=== PATIENT | male | born 1970 | race Caucasian/White ===

== ENCOUNTER 2024-05-14 12:50 | Emergency (ER) | payer BC, SELFPAY ==
--- NOTE | ~2024-05-14 | CT_ITS ---
EXAMINATION: CT brain wo con DATE: 05/14/2024 13:38 INDICATION: Head injury. TECHNIQUE: Computed tomography (CT) of the head was performed without intravenous contrast. The mA wa s adjusted according to patient size. Iterative reconstruction technique was employed. The dose-lengt h product was 681.00 mGy-cm. COMPARISON: None FINDINGS: There is no intracranial hemorrhage, acute infarction, or abnormal intracranial mass lesion . There are scattered areas of nonspecific increased T2-weighted signal intensity in the cerebral whi te matter. The ventricles are normal in size. There is a blowout fracture of medial wall of left orb it. There is mucosal thickening in the paranasal sinuses. There are changes of left mastoidectomy wit h complete opacification of the mastoid air cells. IMPRESSION: 1. . Mild nonspecific cerebral white matter disease, which likely represents chronic small vessel isc hemic disease. 2. Age-indeterminate blowout fracture of medial wall of left orbit. Reviewed, dictated and finalized at location A. IMPRESSION: 1. . Mild nonspecific cerebral white matter disease, which likely represents ch ronic small vessel ischemic disease. 2. Age-indeterminate blowout fracture of medial wall of left orbit.
--- NOTE | ~2024-05-14 | CT_ITS ---
EXAMINATION: CT cervical spine wo con DATE: 05/14/2024 13:38 INDICATION: Neck injury. TECHNIQUE: Computed tomography (CT) of the cervical spine was performed without intravenous contrast. Automated exposure control and iterative reconstruction technique were employed. The dose-length pro duct was 545.03 mGy-cm. COMPARISON: None FINDINGS: There is 8 degrees levocurvature of cervical spine. Vertebral body heights are normal. Ther e is mildly decreased disc height at C5-C6, C6-C7, and C7-T1. The following disc levels are specifica lly discussed: C2-C3: There is mild left uncovertebral joint osteoarthritis. There is no facet joint osteoarthritis. There is no neural foraminal stenosis. There is no central canal stenosis. C3-C4: There is mild bilateral uncovertebral joint osteoarthritis. There is no facet joint osteoarthr itis. There is mild bilateral neural foraminal stenosis. There is no central canal stenosis. C4-C5: There is mild bilateral uncovertebral joint osteoarthritis. There is mild right facet joint os teoarthritis. There is no neural foraminal stenosis. There is mild central canal stenosis. C5-C6: There is severe right and moderate left uncovertebral joint osteoarthritis. There is mild bila teral facet joint osteoarthritis. There is mild bilateral neural foraminal stenosis. There is mild ce ntral canal stenosis. C6-C7: There is moderate right and mild left uncovertebral joint osteoarthritis. There is mild bilate ral facet joint osteoarthritis. There is mild bilateral neural foraminal stenosis. There is mild cent ral canal stenosis. C7-T1: There is no uncovertebral joint osteoarthritis. There is severe bilateral facet joint osteoart hritis. There is mild bilateral neural foraminal stenosis. There is no central canal stenosis. IMPRESSION: 1. No fracture. 2. Mild cervical spondylosis. Reviewed, dictated and finalized at location A.
[2024-05-14 13:00] VITALS: BP 131/96; PULSE 99; RESP 20; TEMP 36.5; O2SAT 99
--- NOTE | 2024-05-14 14:28 | ED_ITS ---
HPI - General Adult General Chief complaint: Wound/Laceration <Alexys Escobar MD - Last Filed: 05/14/24 19:13> Stated complaint: Fall, Eye Laceration <Alexys Escobar MD - Last Filed: 05/14/24 19:13> Time Seen by Provider: 05/14/24 13:13 <Alexys Escobar MD - Last Filed: 05/14/24 19:13> History of Present Illness HPI narrative: 53-year-old male presenting to the emergency department for evaluation for a left sided facial laceration. Patient reports he was walking last night on a gravel driveway and dress shoes fell forward and landed on his arms but did strike his face on the driveway resulting in a laceration. Patient does not suspect he had any loss of consciousness. <Alexys Escobar MD - Last Filed: 05/14/24 19:13> Related Data Allergies/adverse reactions: Allergies Allergy/AdvReac Type Severity Reaction Status Date / Time No Known Allergies Allergy Verified 05/14/24 14:31 <Alexys Escobar MD - Last Filed: 05/14/24 19:13> Review of Systems Review of Systems: All systems reviewed & are unremarkable except as noted in HPI and below <Alexys Escobar MD - Last Filed: 05/14/24 19:13> Exam Narrative: APPEARANCE: Well appearing, no pain, no distress, well-nourished. HEAD: normocephalic, laceration of left upper eyelid EYES: PERRLA/EOMI, conjunctivae clear. NOSE: Normal no drainage EARS:TMS clear with good light reflex. THROAT: Pharynx clear, no exudate. NECK: Supple. No adenopathy, no masses. RESPIRATORY: Airway patent, respirations nonlabored. Clear to auscultation bilaterally, no rales, rhonchi, wheezing. CARDIOVASCULAR: Regular rate and rhythm without murmurs rubs or gallops. ABDOMINAL: Soft, nontender, nondistended, normal bowel sounds MUSCULOSKELETAL: Moves all extremities. Strength/ROM intact, No edema, No calf tenderness. NEURO: Alert. Cranial nerves II through XII intact. Grossly intact SKIN: Warm, dry. Normal Color <Alexys Escobar MD - Last Filed: 05/14/24 19:13> Course Course Emergency Course: Laceration was repaired as described, patient was started on antibiotics and discharged home <Alexys Escobar MD - Last Filed: 05/14/24 19:13> Vital Signs Vital signs: Vital Signs Temperature 97.7 F 05/14/24 13:00 Pulse Rate 99 05/14/24 13:00 Respiratory Rate 20 05/14/24 13:00 Blood Pressure 131/96 H 05/14/24 13:00 Pulse Oximetry 99 05/14/24 13:00 Oxygen Delivery Room Air 05/14/24 13:00 Temperature 97.7 F 05/14/24 13:00 Pulse Rate 85 05/14/24 15:50 Respiratory Rate 16 05/14/24 15:50 Blood Pressure 130/95 H 05/14/24 15:50 Pulse Oximetry 100 05/14/24 15:50 Oxygen Delivery Room Air 05/14/24 13:00 <Alexys Escobar MD - Last Filed: 05/14/24 19:13> Vital Signs Temperature 97.7 F 05/14/24 13:00 Pulse Rate 99 05/14/24 13:00 Respiratory Rate 20 05/14/24 13:00 Blood Pressure 131/96 H 05/14/24 13:00 Pulse Oximetry 99 05/14/24 13:00 Oxygen Delivery Room Air 05/14/24 13:00 Temperature 97.7 F 05/14/24 13:00 Pulse Rate 85 05/14/24 15:50 Respiratory Rate 16 05/14/24 15:50 Blood Pressure 130/95 H 05/14/24 15:50 Pulse Oximetry 100 05/14/24 15:50 Oxygen Delivery Room Air 05/14/24 13:00 <Jeri Baird PA-C - Last Filed: 05/14/24 18:36> Procedures Laceration Laceration 1: Date: 05/14/24 <Jeri Baird PA-C - Last Filed: 05/14/24 18:36> Time: 15:00 <Jeri Baird PA-C - Last Filed: 05/14/24 18:36> Site: face <SOUTH Henriquez Last Filed: 05/14/24 18:36> Side (If applicable): left (eyebrow/upper eyelid) <SOUTH Henriquez Last Filed: 05/14/24 18:36> Size (cm): 3 <SOUTH Henriquez Last Filed: 05/14/24 18:36> Description: linear (curvilinear) <SOUTH Henriquez Last Filed: 05/14/24 18:36> Depth: simple, single layer <SOUTH Henriquez Last Filed: 07/26 18:36> Local Anesthetic: lidocaine 1% <SOUTH Henriquez Last Filed: 05/14/24 18:36> Amount of anesthesia used (mL): 5 <SOUTH Henriquez Last Filed: 05/14/24 18:36> Pre-repair: wound explored, irrigated and irrigated extensively <SOUTH Henriquez Last Filed: 05/14/24 18:36> ====== Skin Level ======: Skin layer closed with: prolene <SOUTH Henriquez Last Filed: 05/14/24 18:36> Size (cm): 6-0 <SOUTH Henriquez Last Filed: 05/14/24 18:36> Number of sutures: 10 <SOUTH Henriquez Last Filed: 05/14/24 18:36> Technique: simple, interrupted <SOUTH Henriquez Last Filed: 05/14/24 18:36> ====== Subcutaneous Layer ======: ====== Muscle Layer ======: ====== Tendon Layer ======: Medical Decision Making MDM Narrative Medical decision making narrative: 53-year-old male presents emergency department for evaluation for a left- sided facial laceration. Patient's CT cervical spine CT brain were negative for acute fracture dislocation. Patient's laceration was repaired as described in the procedure note. Patient was started on antibiotics and patient's tetanus was updated. All questions concerns were addressed. <Alexys Escobar MD - Last Filed: 05/14/24 19:13> Differential Diagnosis Differential Diagnosis: Facial fracture, skull fracture, hematoma, some arachnoid fracture, laceration <Alexys Escobar MD - Last Filed: 05/14/24 19:13> Vital Signs Vital Signs: Vital Signs Temperature 97.7 F 05/14/24 13:00 Pulse Rate 99 05/14/24 13:00 Respiratory Rate 20 05/14/24 13:00 Blood Pressure 131/96 H 05/14/24 13:00 Pulse Oximetry 99 05/14/24 13:00 Oxygen Delivery Room Air 05/14/24 13:00 Temperature 97.7 F 05/14/24 13:00 Pulse Rate 85 05/14/24 15:50 Respiratory Rate 16 05/14/24 15:50 Blood Pressure 130/95 H 05/14/24 15:50 Pulse Oximetry 100 05/14/24 15:50 Oxygen Delivery Room Air 05/14/24 13:00 <Alexys Escobar MD - Last Filed: 05/14/24 19:13> Vital Signs Temperature 97.7 F 05/14/24 13:00 Pulse Rate 99 05/14/24 13:00 Respiratory Rate 20 05/14/24 13:00 Blood Pressure 131/96 H 05/14/24 13:00 Pulse Oximetry 99 05/14/24 13:00 Oxygen Delivery Room Air 05/14/24 13:00 Temperature 97.7 F 05/14/24 13:00 Pulse Rate 85 05/14/24 15:50 Respiratory Rate 16 05/14/24 15:50 Blood Pressure 130/95 H 05/14/24 15:50 Pulse Oximetry 100 05/14/24 15:50 Oxygen Delivery Room Air 05/14/24 13:00 <Jeri Baird PA-C - Last Filed: 05/14/24 18:36> Imaging Data Radiologist's impression: Impressions Head CT 05/14/24 13:39 IMPRESSION: 1. . Mild nonspecific cerebral white matter disease, which likely represents chronic small vessel ischemic disease. 2. Age-indeterminate blowout fracture of medial wall of left orbit. Cervical Spine CT 05/14/24 13:44 IMPRESSION: 1. No fracture. 2. Mild cervical spondylosis. <Alexys Escobar MD - Last Filed: 05/14/24 19:13> Discharge Plan Discharge Clinical Impression: Laceration, Head injury <Alexys Escobar MD - Last Filed: 05/14/24 19:13> Patient Disposition: Home, Self-Care <Alexys Escobar MD - Last Filed: 05/14/24 19:13> Condition: Stable <Alexys Escobar MD - Last Filed: 05/14/24 19:13> Instructions: Antibiotic Form, Care For Your Stitches (ED), Laceration (ED) <Alexys Escobar MD - Last Filed: 05/14/24 19:13> Additional Instructions: Wound care as directed. Sutures will need to be removed in 5-7 days. Antibiotic as directed until completed. Have close follow-up with your primary care physician. <Alexys Escobar MD - Last Filed: 05/14/24 19:13> Prescriptions: New cephalexin 500 mg capsule 500 mg PO Q6H 7 Days Qty: 28 0RF <Alexys Escobar MD - Last Filed: 05/14/24 19:13> Follow-up/Referrals: PHYSICIAN,ROAD CONDUCTOR [Primary Care Provider] - <Alexys Escobar MD - Last Filed: 05/14/24 19:13> Stand Alone Forms: Work/School Release IP <Alexys Escobar MD - Last Filed: 05/14/24 19:13>
[2024-05-14] MEDS: CEPHALEXIN 500 MG CAPSULE PO (14:45)
[2024-05-14] MEDS: TETANUS,DIPHTHERIA,AC PERTUSSIS ADULT (0.5 ML) BOOSTRIX IM (14:46)
[2024-05-14 15:50] VITALS: BP 130/95; PULSE 85; RESP 16; O2SAT 100
== END 2024-05-14 16:07 | disposition home or self-care (01) ==
PROVIDERS: Emergency Provider Emergency Medicine
DX: S01.112A Laceration without foreign body of left eyelid and periocular area, initial encounter (principal); Z23 Encounter for immunization; R90.82 White matter disease, unspecified; M47.812 Spondylosis without myelopathy or radiculopathy, cervical region; W01.0XXA Fall on same level from slipping, tripping and stumbling without subsequent striking against object, initial encounter
CPT/HCPCS: 12013; 70450; 72125; 90471; 90715; 99284; A9270